=== PATIENT | male | born 1970 | race African-American/Black ===

== ENCOUNTER 2025-07-29 06:34 | Inpatient (IN) | payer BC, OTHER ==
[2025-07-29] VITALS (10 sets, daily range): BP systolic 95–159; BP diastolic 53–90; TEMP 97.3–97.7; O2SAT 88–99
[~2025-07-29] VITALS: Ht 162.6 cm; Wt 68.0 kg
[2025-07-29] MEDS ORDERED: ALBUTEROL FS 2.5 MG/3 ML VIAL.NEB ONE (07:12)
[2025-07-29] MEDS ORDERED: IPRATROPIUM NEB FS 0.5 MG/2.5 ML AMPUL.NEB ONE (07:13)
[2025-07-29] MEDS: ALBUTEROL FS 2.5 MG/3 ML VIAL.NEB CONTNEB ONE (07:15)
[2025-07-29] MEDS: IPRATROPIUM NEB FS 0.5 MG/2.5 ML AMPUL.NEB NEB ONE (07:15)
[2025-07-29 07:19] LABS: PLATELET COUNT (AUTO) 328 K/uL (150-450); RED BLOOD CELL COUNT(AUTO) 4.79 MIL/uL (4.5-6.0); RED CELL DISTRIBUTION WIDTH 15.2 % (11.5-15.0); WHITE BLOOD COUNT (AUTO) 13.1 K/uL (4.3-11.0)
[2025-07-29 07:28] LABS: CALCIUM, SERUM 8.7 mg/dL (8.5-10.1); CREATININE 1.1 mg/dL (0.6-1.3); SODIUM SERUM 139 mmol/L (136-145); UREA NITROGEN, BLOOD 11 mg/dL (7-18)
[2025-07-29 07:34] LABS: INR 0.97 (0.91-1.10)
[2025-07-29 07:37] LABS: LACTIC ACID 1.5 mmol/L (0.4-2.0)
[2025-07-29] MEDS ORDERED: CEFTRIAXONE 1GM BAG (ER ONLY) 50 ML IV ONE (08:24)
[2025-07-29] MEDS: CEFTRIAXONE 1GM BAG (ER ONLY) 1 GM/50 ML PIGGYBACK IV ONE (08:30)
[2025-07-29] MEDS ORDERED: TAMS-12 PO (08:49)
[2025-07-29] MEDS ORDERED: QUET100T PO (08:49)
[2025-07-29] MEDS ORDERED: GABA-532 PO (08:49)
[2025-07-29] MEDS ORDERED: METH750T3 PO (08:49)
[2025-07-29] MEDS ORDERED: CLON0.1T PO (08:49)
[2025-07-29] MEDS ORDERED: AIRSUPRA IH (08:49)
[2025-07-29] MEDS ORDERED: ONDA4TAB11 PO (08:49)
[2025-07-29] MEDS ORDERED: FLUT12AE15 IH (08:49)
[2025-07-29] MEDS: AZITHROMYCIN 500 MG in IV D5W 250 ML IV ONE (08:58)
[2025-07-29] MEDS ORDERED: MAG HYDROX/AL HYDROX/SIMETH 30 ML UDC PO PRN (09:00)
[2025-07-29] MEDS ORDERED: ONDANSETRON HCL/PF 4 MG/2 ML VIAL IVP PRN (09:00)
[2025-07-29] MEDS ORDERED: ACETAMINOPHEN 325 MG TABLET PO PRN (09:00)
[2025-07-29] MEDS ORDERED: MAGNESIUM HYDROXIDE 30 ML UDC PO PRN (09:00)
[2025-07-29] MEDS ORDERED: IPRATROPIUM NEB FS 0.5 MG/2.5 ML AMPUL.NEB NEB PRN (09:00)
[2025-07-29] MEDS ORDERED: ALBUTEROL FS 2.5 MG/3 ML VIAL.NEB NEB PRN (09:00)
[2025-07-29] MEDS: ENOXAPARIN SODIUM 40 MG/0.4 ML DISP.SYRIN SQ SCH (10:14)
[2025-07-29] MEDS ORDERED: AIRSUPRA IH PRN (12:30)
[2025-07-29] MEDS ORDERED: FLUTICASONE IH PRN (12:30)
[2025-07-29] MEDS ORDERED: METHOCARBAMOL (750MG) 750 MG TABLET PO PRN (12:30)
[2025-07-29] MEDS ORDERED: QUETIAPINE FUMARATE 100 MG TABLET PO PRN (12:30)
[2025-07-29] MEDS ORDERED: [UNRECOGNIZED DRUG - OTHER] IH PRN (12:30)
[2025-07-29] MEDS ORDERED: GABAPENTIN 300 MG CAPSULE PO PRN (12:30)
[2025-07-29] MEDS ORDERED: CLONIDINE HCL 0.1 MG TABLET PO PRN (12:30)
[2025-07-29] MEDS ORDERED: SALMETEROL IH PRN (12:30)
[2025-07-29] MEDS ORDERED: ONDANSETRON 4 MG TAB.RAPDIS PO PRN (12:30)
[2025-07-29] MEDS: ALBUTEROL FS 2.5 MG/3 ML VIAL.NEB NEB SCH (14:00)
[2025-07-29] MEDS: IPRATROPIUM NEB FS 0.5 MG/2.5 ML AMPUL.NEB NEB SCH (14:00)
[2025-07-29] MEDS ORDERED: ALBUTEROL HALF STRENGTH 1.25 MG/3 ML VIAL.NEB NEB PRN ×2 (14:00→14:07)
[2025-07-30] VITALS (14 sets, daily range): BP systolic 122–150; BP diastolic 64–82; TEMP 98–98.6; O2SAT 93–99
[2025-07-30 06:53] LABS: PLATELET COUNT (AUTO) 334 K/uL (150-450); RED BLOOD CELL COUNT(AUTO) 4.64 MIL/uL (4.5-6.0); RED CELL DISTRIBUTION WIDTH 14.9 % (11.5-15.0); WHITE BLOOD COUNT (AUTO) 18.2 K/uL (4.3-11.0)
[2025-07-30 07:18] LABS: CALCIUM, SERUM 8.9 mg/dL (8.5-10.1); CREATININE 1.2 mg/dL (0.6-1.3); PHOSPHORUS 3.3 mg/dL (2.5-4.9); SODIUM SERUM 138.0 mmol/L (136-145); UREA NITROGEN, BLOOD 13.0 mg/dL (7-18)
[2025-07-30] MEDS: CEFTRIAXONE 1 G in IV D5W 50 ML IV SCH (09:20)
[2025-07-30] MEDS: AZITHROMYCIN 500 MG in IV D5W 250 ML IV SCH (09:21)
[2025-07-30] MEDS: TAMSULOSIN 0.4 MG CAP.SR.24H PO SCH (09:21)
[2025-07-30] MEDS: PANTOPRAZOLE 40 MG TABLET.DR PO SCH (09:22)
[2025-07-31] VITALS (8 sets, daily range): BP systolic 143; BP diastolic 83; TEMP 97.5; O2SAT 93–98
[2025-07-31 05:59] LABS: PLATELET COUNT (AUTO) 330 K/uL (150-450); RED BLOOD CELL COUNT(AUTO) 4.65 MIL/uL (4.5-6.0); RED CELL DISTRIBUTION WIDTH 15.2 % (11.5-15.0); WHITE BLOOD COUNT (AUTO) 17.4 K/uL (4.3-11.0)
[2025-07-31 06:06] LABS: CALCIUM, SERUM 8.7 mg/dL (8.5-10.1); CREATININE 1.1 mg/dL (0.6-1.3); PHOSPHORUS 4.0 mg/dL (2.5-4.9); SODIUM SERUM 139.0 mmol/L (136-145); UREA NITROGEN, BLOOD 19.0 mg/dL (7-18)
[2025-07-31] MEDS ORDERED: METH4TAB3 PO (13:59)
[2025-07-31] MEDS ORDERED: AZIT250T13 PO (13:59)
== END 2025-07-31 16:02 | disposition home or self-care (01) | DRG 190 ==
LOC: ER 06:35 → MED 08:51
PROVIDERS: ADMIT Nurse Practitioner Family
DX: J44.1 Chronic obstructive pulmonary disease with (acute) exacerbation (principal); J96.01 Acute respiratory failure with hypoxia; I10 Essential (primary) hypertension; Z91.199 Patient's noncompliance with other medical treatment and regimen due to unspecified reason; Z77.120 Contact with and (suspected) exposure to mold (toxic); D72.829 Elevated white blood cell count, unspecified; T38.0X5A Adverse effect of glucocorticoids and synthetic analogues, initial encounter; Y92.9 Unspecified place or not applicable; Z79.51 Long term (current) use of inhaled steroids; Z79.899 Other long term (current) drug therapy; F10.10 Alcohol abuse, uncomplicated; Y90.9 Presence of alcohol in blood, level not specified; F41.9 Anxiety disorder, unspecified; N40.0 Benign prostatic hyperplasia without lower urinary tract symptoms; F17.210 Nicotine dependence, cigarettes, uncomplicated
CPT/HCPCS: 36415; 70220-TC; 71045-TC; 71250-TC; 80048-TC; 83605-TC; 83735-TC; 84100-TC; 84484-TC; 85025-TC; 85730-TC; 87040-TC; 93970-TC; 94760-TC; 94799-TC; A4223; G0378; J0456; J0696; J1650; J2919; J7050; J7060

== ENCOUNTER 2025-08-16 19:55 | Inpatient (IN) | payer BC, OTHER ==
[~2025-08-16] VITALS: Ht 162.6 cm; Wt 73.5 kg
[~2025-08-16 19:55] MED LIST: AIRSUPRA IH; AZIT250T13 PO; CLON0.1T PO; FLUT12AE15 IH; GABA-532 PO; METH4TAB3 PO; METH750T3 PO; ONDA4TAB11 PO; QUET100T PO; TAMS-12 PO
[2025-08-16] MEDS ORDERED: ALBUTEROL FS 2.5 MG/3 ML VIAL.NEB ONE (20:05)
[2025-08-16] MEDS ORDERED: IPRATROPIUM NEB FS 0.5 MG/2.5 ML AMPUL.NEB ONE (20:05)
[2025-08-16 20:10] VITALS: O2SAT 97
[2025-08-16] MEDS: ALBUTEROL FS 2.5 MG/3 ML VIAL.NEB NEB ONE (20:10)
[2025-08-16] MEDS: IPRATROPIUM NEB FS 0.5 MG/2.5 ML AMPUL.NEB NEB ONE (20:10)
[2025-08-16] MEDS ORDERED: Magnesium 1GM/D5W 100ML PREMIX 100 ML IV ONE ×2 (20:30→20:48)
[2025-08-16] MEDS: Magnesium 1GM/D5W 100ML PREMIX 200 ML IV ONE (20:32)
[2025-08-16 20:37] LABS: PLATELET COUNT (AUTO) 333 K/uL (150-450); RED BLOOD CELL COUNT(AUTO) 4.79 MIL/uL (4.5-6.0); RED CELL DISTRIBUTION WIDTH 16.1 % (11.5-15.0); WHITE BLOOD COUNT (AUTO) 13.0 K/uL (4.3-11.0)
[2025-08-16 20:45] LABS: CALCIUM, SERUM 8.6 mg/dL (8.5-10.1); CREATININE 1.0 mg/dL (0.6-1.3); SODIUM SERUM 141.0 mmol/L (136-145); UREA NITROGEN, BLOOD 11.0 mg/dL (7-18)
[2025-08-16] MEDS ORDERED: CEFTRIAXONE 1GM BAG (ER ONLY) 50 ML IV ONE (21:08)
[2025-08-16 21:10] VITALS: O2SAT 96
[2025-08-16] MEDS: CEFTRIAXONE 1GM BAG (ER ONLY) 1 GM/50 ML PIGGYBACK IV ONE (21:11)
[2025-08-16] MEDS ORDERED: MAG HYDROX/AL HYDROX/SIMETH 30 ML UDC PO PRN (21:30)
[2025-08-16] MEDS ORDERED: Z GUARD REMEDY 4 OZ OINT TP PRN (21:30)
[2025-08-16] MEDS ORDERED: AZITHROMYCIN 500 MG in IV D5W 250 ML IV SCH (21:30)
[2025-08-16] MEDS ORDERED: ACETAMINOPHEN 325 MG TABLET PO PRN (21:30)
[2025-08-16] MEDS ORDERED: ONDANSETRON HCL/PF 4 MG/2 ML VIAL IVP PRN (21:30)
[2025-08-16] MEDS ORDERED: MAGNESIUM HYDROXIDE 30 ML UDC PO PRN (21:30)
[2025-08-17] VITALS (10 sets, daily range): BP systolic 134–153; BP diastolic 66–84; TEMP 97.7–98.4; O2SAT 95–99
[2025-08-17 07:20] LABS: PLATELET COUNT (AUTO) 332 K/uL (150-450); RED BLOOD CELL COUNT(AUTO) 4.66 MIL/uL (4.5-6.0); RED CELL DISTRIBUTION WIDTH 15.9 % (11.5-15.0); WHITE BLOOD COUNT (AUTO) 11.3 K/uL (4.3-11.0)
[2025-08-17 07:40] LABS: CALCIUM, SERUM 8.9 mg/dL (8.5-10.1); CREATININE 1.2 mg/dL (0.6-1.3); PHOSPHORUS 2.5 mg/dL (2.5-4.9); SODIUM SERUM 140.0 mmol/L (136-145); UREA NITROGEN, BLOOD 10.0 mg/dL (7-18)
[2025-08-17] MEDS: PANTOPRAZOLE 40 MG TABLET.DR PO SCH (10:14)
[2025-08-17] MEDS: ENOXAPARIN SODIUM 40 MG/0.4 ML DISP.SYRIN SQ SCH (10:15)
[2025-08-17] MEDS ORDERED: GABAPENTIN 100 MG CAPSULE PO PRN (12:00)
[2025-08-17] MEDS: LEVOFLOXACIN (250MG) 250 MG TABLET PO SCH (13:34)
[2025-08-17] MEDS: ALBUTEROL FS 2.5 MG/0.5 ML VIAL.NEB NEB PRN (16:23)
[2025-08-17] MEDS: IPRATROPIUM NEB FS 0.5 MG/2.5 ML AMPUL.NEB NEB PRN (16:23)
[2025-08-17] MEDS ORDERED: CEFTRIAXONE 1 G in IV D5W 50 ML IV SCH (21:00)
[2025-08-18 04:00] VITALS: BP 134/79; TEMP 98.2; O2SAT 98
[2025-08-18 06:18] LABS: PLATELET COUNT (AUTO) 345 K/uL (150-450); RED BLOOD CELL COUNT(AUTO) 4.66 MIL/uL (4.5-6.0); RED CELL DISTRIBUTION WIDTH 16.1 % (11.5-15.0); WHITE BLOOD COUNT (AUTO) 17.4 K/uL (4.3-11.0)
[2025-08-18 07:06] LABS: CALCIUM, SERUM 9.2 mg/dL (8.5-10.1); CREATININE 1.0 mg/dL (0.6-1.3); PHOSPHORUS 2.6 mg/dL (2.5-4.9); SODIUM SERUM 140.0 mmol/L (136-145); UREA NITROGEN, BLOOD 17.0 mg/dL (7-18)
[2025-08-18 08:00] VITALS: BP 132/77; TEMP 97.6; O2SAT 99
[2025-08-18] MEDS: TAMSULOSIN 0.4 MG CAP.SR.24H PO SCH (09:06)
[2025-08-18 12:00] VITALS: BP 132/77; TEMP 97.6; O2SAT 99
[2025-08-18] MEDS ORDERED: FLUT1BLS6 IH (12:18)
[2025-08-18] MEDS ORDERED: PRED20TA PO (12:18)
== END 2025-08-18 13:45 | disposition home or self-care (01) | DRG 190 ==
LOC: ER 20:04 → MEDSG1 22:59
PROVIDERS: ATTEND Nurse Practitioner Family
DX: J44.1 Chronic obstructive pulmonary disease with (acute) exacerbation (principal); J96.01 Acute respiratory failure with hypoxia; I10 Essential (primary) hypertension; Z79.51 Long term (current) use of inhaled steroids; Z79.899 Other long term (current) drug therapy; Z71.6 Tobacco abuse counseling; F17.200 Nicotine dependence, unspecified, uncomplicated; D72.829 Elevated white blood cell count, unspecified; F41.9 Anxiety disorder, unspecified; N40.0 Benign prostatic hyperplasia without lower urinary tract symptoms
CPT/HCPCS: 36415; 71045-TC; 80048-TC; 83735-TC; 84100-TC; 85025-TC; 87081-TC; 94799-TC; G0378; J0696; J1650; J2919; J3475; J7060